=== PATIENT | male | born 1955 | race Caucasian/White ===

== ENCOUNTER 2020-11-08 23:32 | Emergency (ER) | payer OTHER ==
[~2020-11-08] VITALS: Ht 175.3 cm; Wt 82.8 kg
[2020-11-08] MEDS ORDERED: ROSU10TA6 PO (23:45)
[2020-11-08] MEDS ORDERED: OMEP40CA4 PO (23:45)
[2020-11-08] MEDS ORDERED: FLOM0.4C39 PO (23:45)
[2020-11-08] MEDS ORDERED: GABA-282 PO (23:45)
[2020-11-08] MEDS ORDERED: MELO15TA28 PO (23:45)
[2020-11-08] MEDS ORDERED: EUTH112T PO (23:45)
[2020-11-09 02:41] LABS: BASO % 0.9 % (0.0-1.0); EOS % 0.2 % (0.0-3.0); HEMATOCRIT 51.2 % (42.0-52.0); HEMOGLOBIN 17.1 g/dl (13.5-17.5); LYMPH # 0.4 10^3/uL (1.5-5.0); LYMPH % 8.6 % (24.0-44.0); MEAN CORPUSCULAR HEMOGLOBIN 30.1 pg (27.0-33.0); MEAN CORPUSCULAR HGB CONC 33.4 g/dl (32.0-36.5); MEAN CORPUSCULAR VOLUME 90.1 fl (80.0-96.0); MONO # 0.5 10^3/uL (0.0-0.8); MONO % 9.9 % (2.0-8.0); NEUTROPHILS # 3.7 10^3/uL (1.5-8.5); PLATELET COUNT, AUTOMATED 174 10^3/uL (150-450); RED BLOOD COUNT 5.68 10^6/uL (4.30-6.10); WHITE BLOOD COUNT 4.6 10^3/uL (4.0-10.0)
[2020-11-09 03:13] LABS: ALBUMIN 4.1 GM/DL (3.2-5.2); ALT/SGPT 31 U/L (12-78); BILIRUBIN,DIRECT 0.1 MG/DL (0.0-0.2); BILIRUBIN,TOTAL 0.6 MG/DL (0.2-1.0); BLOOD UREA NITROGEN 15 MG/DL (7-18); CALCIUM LEVEL 8.6 MG/DL (8.8-10.2); CARBON DIOXIDE LEVEL 31 MEQ/L (21-32); CHLORIDE LEVEL 104 MEQ/L (98-107); CK-MB VALUE MASS < 1.0 NG/ML (<3.6); CPK CREATINE PHOSPHOKINASE 114 U/L (39-308); CREATININE FOR GFR 1.01 MG/DL (0.70-1.30); GLOMERULAR FILTRATION RATE > 60.0 (>49); GLUCOSE, FASTING 114 MG/DL (70-100); LIPASE 307 U/L (73-393); MB/CK RELATIVE INDEX 0.88 (< OR =4); POTASSIUM SERUM 4.1 MEQ/L (3.5-5.1); SODIUM LEVEL 141 MEQ/L (136-145); TOTAL PROTEIN 7.5 GM/DL (6.4-8.2); TROPONIN I < 0.02 NG/ML (< 0.10)
--- NOTE | 2020-11-09 06:06 | ECGEPIP ---
[facility] - ED Test Date: 2020-11-09 Pat Name: JOCELYN FUCHS Department: Room: - Gender: Male Handle Lathe Operator: BENJAMIN : 1955 Requested By: RYAN Lane Order Number: [id number] Reading MD: Julian Serra Measurements Intervals [facility] Rate: 69 P: 33 [place]: 144 QRS: 37 QRSD: 100 T: 12 QT: 388 QTc: 415 Interpretive Statements Normal sinus rhythm Nonspecific ST T wave changes Delayed R wave progression No prior ECG for comparison Electronically Signed on 11-09-2020 6:05:40 EDT by Julian Serra
--- NOTE | 2020-11-09 06:19 | REPVR ---
PROCEDURE INFORMATION: Exam: CT Abdomen And Pelvis Without Contrast Exam date and time: 11/09/2020 4:07 AM Age: 65 years old Clinical indication: Abdominal pain; Flank; Left; Additional info: Left flank pain TECHNIQUE: Imaging protocol: Computed tomography of the abdomen and pelvis without contrast. Radiation optimization: All CT scans at this facility use at least one of these dose optimization techniques: automated exposure control; mA and/or kV adjustment per patient size (includes targeted exams where dose is matched to clinical indication); or iterative reconstruction. COMPARISON: No relevant prior studies available. FINDINGS: Lungs: Calcified granuloma right lower lobe. Bilateral and linear atelectasis versus scarring. Liver: Multiple liver cysts additional subcentimeter low-attenuation liver lesions, too small to characterize. Mild hepatomegaly. Gallbladder and bile ducts: Normal. No calcified stones. No ductal dilation. Pancreas: Normal. No ductal dilation. Spleen: Normal. No splenomegaly. Adrenal glands: Normal. No mass. Kidneys and ureters: Nonobstructive left renal calculus. No hydronephrosis. Stomach and bowel: Mild constipation. Appendix: No evidence of appendicitis. Intraperitoneal space: Unremarkable. No free air. No significant fluid collection. Vasculature: Atherosclerotic disease the abdominal aorta. Lymph nodes: Unremarkable. No enlarged lymph nodes. Urinary bladder: Unremarkable as visualized. Reproductive: Enlarged prostate. Bones/joints: Degenerative changes in the bilateral sacroiliac joints. Soft tissues: Fat containing bilateral inguinal hernias. IMPRESSION: Nonobstructive left renal calculus. No hydronephrosis. No bowel obstruction. Normal appendix. Mild constipation. Mildly enlarged prostate. Mild hepatomegaly. Multiple liver cysts. Electronically signed by: Sergey Haynes On 11/09/2020 06:18:48 AM
[2020-11-09] MEDS ORDERED: KETOROLAC 30 MG/ML 1ML VIAL IV ONE (06:30)
[2020-11-09] MEDS ORDERED: MIRA1POW3 PO (07:39)
[2020-11-09] MEDS ORDERED: KETO10TAB PO (07:39)
[2020-11-09] MEDS ORDERED: MAGNESIUM CITRATE 300 ML BTL PO ONE (07:40)
[2020-11-09 07:57] VITALS: BP 110/57
== END 2020-11-09 08:00 | disposition home or self-care (01) ==
LOC: M ED 23:32
DX: K59.00 Constipation, unspecified (principal); N20.0 Calculus of kidney; E78.5 Hyperlipidemia, unspecified; K21.9 Gastro-esophageal reflux disease without esophagitis; N40.0 Benign prostatic hyperplasia without lower urinary tract symptoms; Z88.2 Allergy status to sulfonamides
CPT/HCPCS: 74176; 80048; 80076; 81001; 82550; 82553; 83690; 84484; 85025; 93005; 93041; 96374; 99285; J1885

== ENCOUNTER 2024-10-25 11:57 | Emergency (ER) | payer MEDICARE ==
[~2024-10-25 11:57] MED LIST changes: -PANT40TA29; -PRED20TA; -PRED20TA PO
[2024-10-25] MEDS ORDERED: PRED20TA (12:53)
[2024-10-25] MEDS ORDERED: PANT40TA29 (12:53)
[2024-10-25 14:49] LABS: KETONE, URINE AUTO RFX NEGATIVE (NEGATIVE); LEUKOCYTE ESTERASE UR AUTO RFX NEGATIVE (NEGATIVE); NITRITE, URINE AUTO RFX NEGATIVE (NEGATIVE); RBC, URINE AUTO RFX 0 /HPF (0-3); SQUAM EPITHELIAL CELL UR AURFX 0 /HPF (0-6); WBC, URINE AUTO RFX 0 /HPF (0-3)
[2024-10-25 15:09] LABS: C REACTIVE PROTEIN QUANTITATIV 1.4 MG/DL (<1.0)
[2024-10-25 16:59] VITALS: BP 162/88; TEMP 97.6; O2SAT 96
[2024-10-25] MEDS ORDERED: PRED20TA PO (17:19)
[2024-10-25] MEDS: predniSONE 20 MG TAB PO ONE (17:28)
== END 2024-10-25 17:32 | disposition home or self-care (01) ==
LOC: M ED 11:57
DX: R60.0 Localized edema (principal); K21.9 Gastro-esophageal reflux disease without esophagitis; E78.5 Hyperlipidemia, unspecified; Z88.2 Allergy status to sulfonamides; Z79.52 Long term (current) use of systemic steroids; Z79.899 Other long term (current) drug therapy
CPT/HCPCS: 36415; 73130; 73610; 81001; 84550; 85652; 86140; 99283; J7512

== ENCOUNTER → 2024-10-25 | Outpatient (CLI) | payer MEDICARE ==
[~2024-10-25] MED LIST: EUTH112T PO; GABA-1172 PO; KETO10TAB PO; MELO15TA28 PO; MIRA33506 PO; OMEP40CA4 PO; PANT40TA29; PRED20TA; PRED20TA PO; ROSU10TA61 PO; TAMS-18 PO
[2024-10-25 10:41] LABS: BASO # 0.0 10^3/uL (0.0-0.2); BASO % 0.5 % (0.0-1.0); EOS # 0.2 10^3/uL (0.0-0.5); EOS % 2.2 % (0.0-3.0); LYMPH # 1.1 10^3/uL (1.5-5.0); LYMPH % 12.5 % (24.0-44.0); MONO # 0.8 10^3/uL (0.0-0.8); MONO % 8.9 % (2.0-8.0); NEUTROPHILS # 6.7 10^3/uL (1.5-8.5); NEUTROPHILS % 75.6 % (36.0-66.0); PLATELET COUNT, AUTOMATED 240 10^3/uL (150-450)
[2024-10-25 10:57] LABS: ALT/SGPT 20.0 U/L (7.0-40); AST/SGOT 21.0 U/L (<34); CALCIUM LEVEL 8.7 MG/DL (8.3-10.6); CARBON DIOXIDE LEVEL 30.0 MMOL/L (20-31); CHLORIDE LEVEL 104.0 MMOL/L (98-107); CREATININE FOR GFR 0.97 MG/DL (0.70-1.30); GLOMERULAR FILTRATION RATE 85.6 (>49); POTASSIUM SERUM 4.6 MMOL/L (3.5-5.1); SODIUM LEVEL 145.0 MMOL/L (136-145)
== END ==
LOC: M LAB 09:16
PROVIDERS: ATTEND Physician Assistant
DX: M79.672 Pain in left foot (principal)